=== PATIENT | female | born 1965 | race Caucasian/White ===

== ENCOUNTER 2019-11-26 10:43 | Inpatient (IN) | payer BC ==
[2019-11-18 16:30] LABS: BASOPHILS # (AUTO) 0.1 X10'3 (0-0.2); BASOPHILS % (AUTO) 0.9 % (0-1); EOSINOPHILS # (AUTO) 0.1 X10'3 (0-0.9); EOSINOPHILS % (AUTO) 1.4 % (0-6); LYMPHOCYTES # (AUTO) 2.5 X10'3 (1.1-4.8); LYMPHOCYTES % (AUTO) 34.4 % (21-51); MEAN CORPUSCULAR HEMOGLOBIN 30.4 PG (27.0-31.0); MEAN CORPUSCULAR HGB CONC 33.2 g/dL (33.0-36.5); MEAN CORPUSCULAR VOLUME 91.7 FL (78-98); MEAN PLATELET VOLUME 8.7 FL (7.4-10.4); MONOCYTES # (AUTO) 0.7 X10'3 (0-0.9); MONOCYTES % (AUTO) 9.2 % (2-12); NEUTROPHILS % (AUTO) 54.1 % (42-75); PRE OP HEMATOCRIT 42.4 % (35.0-45.0); PRE OP HEMOGLOBIN 14.1 g/dL (12.0-16.0); PRE OP PLATELET COUNT 268 X10'3 (140-440); RED BLOOD COUNT 4.63 X10'6 (4.20-5.60)
[2019-11-18 17:08] LABS: ALBUMIN 3.8 G/DL (3.4-5.0); ALBUMIN/GLOBULIN RATIO 1.3 (1.1-1.5); ALKALINE PHOSPHATASE 55 IU/L (46-116); BLOOD UREA NITROGEN 24 MG/DL (7-18); BUN/CREATININE RATIO 17.8 (6.6-38.0); CALCIUM 8.9 MG/DL (8.5-10.1); CHLORIDE 107 MMOL/L (99-107); CREATININE 1.35 MG/DL (0.40-0.90); PRE OP ALT 25 U/L (30-65); PRE OP ANION GAP 7 (8-16); PRE OP AST 10 U/L (10-37); PRE OP BILIRUB, TOTAL 0.3 MG/DL (0.0-1.0); PRE OP GLUCOSE 92 MG/DL (70-104); PRE OP POTASSIUM 4.3 MMOL/L (3.4-5.1); PRE OP SODIUM 142 MMOL/L (135-145); TOTAL CARBON DIOXIDE 28.2 MMOL/L (24-32); TOTAL PROTEIN 6.7 G/DL (6.4-8.2); eGFR 41 ML/MIN
[2019-11-26] VITALS (18 sets, daily range): BP systolic 98–132; BP diastolic 54–79
[~2019-11-26] VITALS: Ht 170.2 cm; Wt 91.0 kg
[~2019-11-26 10:43] MED LIST: NO HOME MEDS; cefazolin/dext.iso 2gm/50ml 50 ML IV ONE; famotidine 20mg tablet PO ONE; vancomycin 1,500 MG in NS 300ml IV soln IV ONE
[2019-11-26] MEDS: ringers solution, lacted 1,000 ML IV SCH (11:42)
[2019-11-26] MEDS ORDERED: MIDAZolam 5mg/5ml vial ONE (13:47)
[2019-11-26] MEDS ORDERED: fentaNYL/PF 50MCG/1 ML 2ML syringe ONE ×2 (13:48→14:47)
[2019-11-26] MEDS ORDERED: tranexamic acid 1gm/0.7% sal. 100 ML IV ONE ×2 (13:50→19:00)
[2019-11-26] MEDS ORDERED: tetracaine 1% (10mg/ml) pres. free inj. ONE (13:50)
[2019-11-26] MEDS ORDERED: ROPIVAcaine inj 200 MG, epiNEPHrine inj 0.6 MG, morphine 10mg/ml inj. 5 MG in normal sa... IU ONE (14:00)
[2019-11-26] MEDS ORDERED: ondansetron/PF 4mg/2ml inj IV PRN (14:00)
[2019-11-26] MEDS ORDERED: morphine 4 MG/ML inj SYRINge IV PRN (14:00)
[2019-11-26] MEDS ORDERED: proCHLORperazine 10 MG/2 ml inj IV PRN (14:00)
[2019-11-26] MEDS ORDERED: ringers solution, lacted 1,000 ML IV SCH (14:00)
[2019-11-26] MEDS ORDERED: meperidine/PF 25mg/ml syringe IV PRN ×3 (14:00)
[2019-11-26] MEDS ORDERED: ROPIVAcaine 0.2% (10 MG/5 ML) BOLUS INJECTION ADDCANAL PRN (14:00)
[2019-11-26] MEDS ORDERED: ROPIVAcaine 0.2%/PF PUMP/bolus 550 ML ADDCANAL SCH (14:00)
[2019-11-26] MEDS ORDERED: morphine 2 MG/ML inj. syringe IV PRN (14:00)
[2019-11-26] MEDS ORDERED: ceFAZolin 1000mg inj ONE (14:02)
[2019-11-26] MEDS ORDERED: vancomycin 1,000mg inj ONE (14:02)
[2019-11-26] MEDS ORDERED: Thrombin (Bovine) 5,000 unit vial TP ONE (14:02)
[2019-11-26] MEDS ORDERED: epiNEPHrine 1 mg/ml inj ONE (15:11)
[2019-11-26] MEDS ORDERED: ROPIVAcaine 0.5% (5mg/ml) 30ml vial ONE ×2 (15:12→15:14)
[2019-11-26] MEDS ORDERED: morphine 10mg/ml inj. ONE (15:12)
[2019-11-26] MEDS ORDERED: propofol inj 20 ML IV ONE (15:15)
[2019-11-26] MEDS ORDERED: diphenhydrAMINE 50 mg/ml inj ONE (15:15)
[2019-11-26] MEDS ORDERED: LIDOcaine 2% (20mg/ml) 5ml vial ONE (15:15)
[2019-11-26] MEDS ORDERED: HYDROmorphone inj. 0.5 MG/0.5 ML DISP.SYRIN IV PRN (16:05)
[2019-11-26] MEDS ORDERED: oxyCODONE IR 5mg (immed. release) tablet PO PRN (16:05)
[2019-11-26] MEDS ORDERED: magnesium hydroxide 30ml (MOM) UD suspension PO PRN (16:05)
[2019-11-26] MEDS ORDERED: bisacodyl 10mg suppository rectal RC PRN (16:05)
[2019-11-26] MEDS ORDERED: HYDROmorphone 1 mg/ml syringe IV PRN (16:05)
[2019-11-26] MEDS ORDERED: acetaminophen 325mg tablet PO PRN (16:05)
[2019-11-26] MEDS ORDERED: diphenhydrAMINE 25mg capsule PO PRN ×2 (16:05)
[2019-11-26] MEDS ORDERED: meperidine/PF 25mg/ml syringe ONE ×2 (16:30)
--- NOTE | 2019-11-26 16:33 | NUR ---
RECEIVED FROM OR VIA BED WITH OHTF ACCOMPANIED BY ANESTHESIOLOGIST DR PENNY, REPORT GIVEN. PT AWAKE AND ALERT WITH NO COMPLAINT OF PAIN AT THIS TIME. SPINAL SENSATION AT UMBILICUS.BLOCK CATHETER IN PLACE. L KNEE BAYLEE DRESSING WITH KNEE WRAP AND POWDER PACK CDI. PPULSES PRESENT, CAP REFILL BRISK, SKIN PINK AND WARM, VSS, 18 GAUGE PIV L FA PATENT AND RUNNING LR AT 100 ML/HR. SCDS ON AND RESTING COMFORTABLY.
[2019-11-26] MEDS ORDERED: acetaminophen 1,000mg/100ml IV 100 ML IV ONE (16:44)
[2019-11-26] MEDS: ondansetron/PF 4mg/2ml inj IV PRN (17:02)
--- NOTE | 2019-11-26 17:42 | NUR ---
Patient in room ORTHO 4009B. I have received report from curry in recovery and had the opportunity to ask questions and assume patient care.
--- NOTE | 2019-11-26 17:53 | NUR ---
TRANSFERRED TO ROOM 4009A VIA BED WITH OHTF ACCOMPANIED BY MYSELF, REPORT GIVEN. PT AWAKE AND ALERT WITH COMPLAINT OF PAIN AT LEVEL 2 AT THIS TIME. SPINAL SENSATION AT UMBILICUS.BLOCK CATHETER IN PLACE. L KNEE BAYLEE DRESSING WITH KNEE WRAP AND POWDER PACK CDI. PPULSES PRESENT, CAP REFILL BRISK, SKIN PINK AND WARM, VSS, 18 GAUGE PIV L FA PATENT AND RUNNING LR AT 100 ML/HR. SCDS ON AND RESTING COMFORTABLY. LEFT IN CARE OF CARLITOS SPIVEY
--- NOTE | 2019-11-26 18:00 | NUR ---
Pt arrived on the floor, tucked in, post op vitals started, made comfortable
--- NOTE | 2019-11-26 18:05 | NUR ---
Patient in room ORTHO 4009. I have received report from ALLYSSA Correa and had the opportunity to ask questions and assume patient care.
--- NOTE | 2019-11-26 18:32 | NUR ---
Problems reprioritized. Patient report given, questions answered & plan of care reviewed with Terrence.
[2019-11-26] MEDS: acetaminophen 325mg tablet PO SCH (19:34)
[2019-11-26] MEDS ORDERED: vancomycin/NS 1 GM ADD-VANTAGE 250 ML IV SCH (20:00)
[2019-11-26] MEDS ORDERED: sennosides 8.6mg tablet PO SCH (21:00)
[2019-11-26] MEDS: gabapentin 300mg capsule PO SCH (21:35)
[2019-11-26] MEDS: oxyCODONE IR 5mg (immed. release) tablet PO PRN (21:42)
[2019-11-26] MEDS: potassium cl 20mEq in 1/2 NS 1,000 ML IV SCH (23:52)
[2019-11-27] MEDS: potassium cl 20mEq in 1/2 NS 1,000 ML IV SCH ×3 (00:01→08:56)
[2019-11-27] MEDS: ceFAZolin 1GM/D5W- ADD-VANTAGE 50 ML IV SCH ×2 (00:24→08:54)
[2019-11-27] MEDS: acetaminophen 325mg tablet PO SCH ×3 (02:07→13:14)
[2019-11-27] MEDS: oxyCODONE IR 5mg (immed. release) tablet PO PRN (05:12)
[2019-11-27 06:00] VITALS: BP 114/58
--- NOTE | 2019-11-27 06:20 | NUR ---
RECEIVED REPORT FROM ALLYSSA PEREZ
--- NOTE | 2019-11-27 06:27 | NUR ---
Problems reprioritized. Patient report given, questions answered & plan of care reviewed with ALLYSSA Rocha.
[2019-11-27 06:53] LABS: BASOPHILS % (AUTO) 0.5 % (0-1); EOSINOPHILS # (AUTO) 0.1 X10'3 (0-0.9); EOSINOPHILS % (AUTO) 0.8 % (0-6); HEMATOCRIT 41.9 % (35.0-45.0); HEMOGLOBIN 13.7 g/dl (12.0-16.0); LYMPHOCYTES # (AUTO) 2.4 X10'3 (1.1-4.8); LYMPHOCYTES % (AUTO) 25.1 % (21-51); MEAN CORPUSCULAR HEMOGLOBIN 30.4 PG (27.0-31.0); MEAN CORPUSCULAR HGB CONC 32.8 g/dL (33.0-36.5); MEAN CORPUSCULAR VOLUME 92.7 FL (78-98); MEAN PLATELET VOLUME 8.9 FL (7.4-10.4); MONOCYTES # (AUTO) 0.9 X10'3 (0-0.9); MONOCYTES % (AUTO) 9.3 % (2-12); NEUTROPHILS # (AUTO) 6.2 X10'3 (1.8-7.7); NEUTROPHILS % (AUTO) 64.3 % (42-75); PLATELET COUNT 203 X10'3 (140-440); RED BLOOD COUNT 4.52 X10'6 (4.20-5.60); RED CELL DISTRIBUTION WIDTH 13.7 % (11.5-14.5); WHITE BLOOD COUNT 9.6 X10'3 (4.5-11.0)
[2019-11-27 07:05] LABS: ANION GAP 6 (8-16); CHLORIDE 105 MMOL/L (99-107); POTASSIUM 4.2 MMOL/L (3.5-5.1); SODIUM 140 MMOL/L (135-145); TOTAL CARBON DIOXIDE 28.6 MMOL/L (24-32)
[2019-11-27] MEDS: ondansetron/PF 4mg/2ml inj IV PRN (08:13)
[2019-11-27] MEDS ORDERED: aspirin 325mg tablet PO SCH (08:30)
[2019-11-27] MEDS: gabapentin 300mg capsule PO SCH ×2 (08:54→12:47)
[2019-11-27] MEDS: ringers solution, lacted 1,000 ML IV SCH (09:49)
[2019-11-27 10:00] VITALS: BP 130/66
[2019-11-27] MEDS ORDERED: ONDA4TAB6 PO (11:59)
[2019-11-27] MEDS ORDERED: ONQPUMP ADDCANAL (11:59)
[2019-11-27] MEDS ORDERED: ASPI-1 PO (11:59)
--- NOTE | 2019-11-27 13:49 | NUR ---
pt d/c with instructions, understanding of instructions and w/all belongings in wheelchair to private vehicle to go home and f/u w/surgeon nursing staff gave pt powder packs, island dressing and new on q pump per md orders prior to d/c
--- NOTE | 2019-11-27 14:33 | NUR ---
Joint Replacement Consult: Pt seen by AMOS for written/verbal high protein ed w/ RD contact information provided. Addendum: 11/27/19 at [address] Amended: Links added.
[2019-11-27] MEDS ORDERED: celeCOXIB 100mg capsule PO SCH (20:00)
[2019-11-28] MEDS ORDERED: acetaminophen 325mg tablet PO PRN (16:05)
== END 2019-11-27 13:58 | disposition home or self-care (01) | DRG 470 ==
LOC: PAS 10:43 → EDSTATUS 12:30 → ORTHO 4S 16:01 → OBSVTOIN 16:01 → ORTHO 4S 17:42
PROVIDERS: ADMIT Orthopaedic Surgery; ATTEND Orthopaedic Surgery
PROC: 0SRD0L9 Replacement of Left Knee Joint with Medial Unicondylar Synthetic Substitute, Cemented, Open Approach (ICD-10-PCS; principal; 2019-11-26 14:04)
DX: M17.12 Unilateral primary osteoarthritis, left knee (principal); Z79.899 Other long term (current) drug therapy; Z20.828 Contact with and (suspected) exposure to other viral communicable diseases
CPT/HCPCS: Z7506; Z7508; 36415; 80051; 80053; 82948; 85025; 87081; 87635; 93005; 97110; 97116; 97162; 97530; A4215; A7000; C1713; C1758; C1776; G0378; J0131; J0171; J0690; J1200; J2001; J2175; J2250; J2270; J2405; J2704; J2795; J3010; J3370; J3480; J7040; J7050; J7120